=== PATIENT | female | born 1995 | race Caucasian/White ===

== ENCOUNTER 2020-12-29 14:00 | Emergency (ER) | payer OTHER, SELFPAY ==
[2020-12-29 14:05] VITALS: BP 137/82; PULSE 83; RESP 16; TEMP 36.5; O2SAT 99; BMI 24.7
--- NOTE | 2020-12-29 14:29 | ED.ALLEREA ---
HPI - Allergic Reaction <Bryant Guardado PA-C - Last Filed: 12/29/20 15:51> General Chief complaint: Allergic Reaction Stated complaint: rash all over body Time Seen by Provider: 12/29/20 14:29 Source: patient Mode of arrival: Ambulatory History of Present Illness HPI narrative: Delaney presents today with chief complaint of spreading rash that started today. She reports that she was previously being treated for cellulitis of her right proximal thigh and finished her antibiotics today. An hour before her symptoms started she was cleaning out a cooler that had rotten chicken in it for about 2 months. She thinks that maybe she got some of it on her which could have caused the reaction. She reports that the rash is slightly itchy and is not painful. She denies any throat tightness, shortness of breath, cough, joint pain or any other acute concerns or complaints at this time. She has no known allergies. Related Data Previous Rx's Medication Instructions Recorded famotidine 40 mg tablet 40 mg PO DAILY 7 Days #7 tab 12/29/20 fexofenadine 60 mg tablet 60 mg PO BID 7 Days #14 tab 12/29/20 prednisone 20 mg tablet 40 mg PO DAILY 5 Days #10 tab 12/29/20 Allergies Allergy/AdvReac Type Severity Reaction Status Date / Time sulfamethoxazole Allergy Verified 12/29/20 15:34 Review of Systems <Bryant Guardado PA-C - Last Filed: 12/29/20 15:51> Review of Systems Narrative: As per HPI Patient History <Bryant Guardado PA-C - Last Filed: 12/29/20 15:51> Social History Smoking Status: Never smoker Smoking Status: Never smoker alcohol intake frequency: 0-2 drinks per day Substance Use Type: does not use Exam <Bryant Guardado PA-C - Last Filed: 12/29/20 15:51> Narrative Exam Narrative: Exam Narrative: Const General: cooperative, healthy appearing, comfortable, no acute distress, well developed and well groomed Nutritional Appearance: average body habitus Orientation: alert and oriented x3 HENMT Head: normal to inspection and atraumatic Ears: hearing grossly normal bilaterally Nose: external nose normal and nares normal Face and sinus: normal facial exam Mouth: Oral mucosa grossly normal to appearance. No significant lesions, erythema or edema noted. Tongue normal. Uvula midline without edema or erythema. Neck Neck: normal visual inspection and supple Resp Effort & Inspection: normal respiratory effort, able to speak in complete sentences, no audible wheezes, not labored, no nasal flaring and no respiratory distress, clear to auscultation bilaterally Neuro General: alert, oriented x3, gait normal, tone normal and moves all extremities Cognition: normal cognition Speech: speech normal Gait: normal gait Skin Monumental Stonemason present: Camille KEEN. Diffuse irregular shaped raised areas of erythema across bilateral lower extremities, torso and upper extremities. Psych Appearance: grossly normal and well kempt Mental Status: mental status grossly normal Speech and Movement: speech and movement normal Mood: congruent mood Affect: normal affect Initial Vital Signs Initial Vital Signs: Vital Signs Temperature 97.7 F 12/29/20 14:05 Pulse Rate 83 12/29/20 14:05 Respiratory Rate 16 12/29/20 14:05 Blood Pressure 137/82 12/29/20 14:05 Pulse Oximetry 99 12/29/20 14:05 <Haresh Taylor MD - Last Filed: 12/29/20 16:08> Initial Vital Signs Initial Vital Signs: Vital Signs Temperature 97.7 F 12/29/20 14:05 Pulse Rate 83 12/29/20 14:05 Respiratory Rate 16 12/29/20 14:05 Blood Pressure 137/82 12/29/20 14:05 Pulse Oximetry 99 12/29/20 14:05 Course <Bryant Guardado PA-C - Last Filed: 12/29/20 15:51> Course Course Narrative: Differential diagnosis includes anaphylaxis, drug reaction, allergic dermatitis, contact dermatitis. Patient's symptoms started after she completed the full course of antibiotics. She has used sulfa antibiotics in the past without similar reactions. She does not have any oral involvement nor any evidence of airway compromise at this time. I think that allergic reaction to her antibiotics is certainly possible but seems unlikely given the onset of her symptoms. We will treat for allergic dermatitis at this time. She is currently finished her antibiotics so no need to discontinue those at this time. Return precautions were discussed with the patient. Patient verbalizes understanding and agrees to plan and has no further concerns at this time. Thank you A [id number] system was used with the dictation of this note. Please disregard any spelling or grammatical errors. Orders Ordered: Discontinued Medications Diphenhydramine HCl (Diphenhydramine 25 Mg Tablet) 50 mg PO NOW ONE Stop: 12/29/20 14:35 Last Admin: 12/29/20 14:39 Dose: 50 mg Documented by: TOOTIE Famotidine (Famotidine 20 Mg Tablet) 20 mg PO Q48H [facility] Last Admin: 12/29/20 14:40 Dose: 20 mg Documented by: TOOTIE Prednisone (Prednisone 20 Mg Tablet) 40 mg PO NOW ONE Stop: 12/29/20 15:20 Last Admin: 12/29/20 15:26 Dose: 40 mg Documented by: TOOTIE Vital Signs Vital signs: Vital Signs - 8 hr 12/29/20 14:05 12/29/20 15:35 Temperature 97.7 F Pulse Rate 83 80 Respiratory Rate 16 16 Blood Pressure 137/82 140/80 Pulse Oximetry 99 99 <Haresh Taylor MD - Last Filed: 12/29/20 16:08> Orders Ordered: Discontinued Medications Diphenhydramine HCl (Diphenhydramine 25 Mg Tablet) 50 mg PO NOW ONE Stop: 12/29/20 14:35 Last Admin: 12/29/20 14:39 Dose: 50 mg Documented by: TOOTIE Famotidine (Famotidine 20 Mg Tablet) 20 mg PO Q48H [facility] Last Admin: 12/29/20 14:40 Dose: 20 mg Documented by: TOOTIE Prednisone (Prednisone 20 Mg Tablet) 40 mg PO NOW ONE Stop: 12/29/20 15:20 Last Admin: 12/29/20 15:26 Dose: 40 mg Documented by: TOOTIE Vital Signs Vital signs: Vital Signs - 8 hr 12/29/20 14:05 12/29/20 15:35 Temperature 97.7 F Pulse Rate 83 80 Respiratory Rate 16 16 Blood Pressure 137/82 140/80 Pulse Oximetry 99 99 Discharge Plan Departure Patient Disposition: Home Clinical Impression: Urticaria Instructions: DI for Hives Activity Restrictions/Additional Instructions: It was very nice to meet you this afternoon. Please take the antihistamines and prednisone to help with your symptoms. I expect them to improve by tomorrow. You experience spreading redness, throat tightness, shortness of breath, cough or any other acute concerns or complaints do not hesitate to return for re-evaluation. Thank you Bryant Guardado PA-C Prescriptions: New famotidine 40 mg tablet 40 mg PO DAILY 7 Days Qty: 7 RF: 0 fexofenadine 60 mg tablet 60 mg PO BID 7 Days Qty: 14 RF: 0 prednisone 20 mg tablet 40 mg PO DAILY 5 Days Qty: 10 RF: 0
[2020-12-29] MEDS: diphenhydrAMINE 25 MG TABLET 50 MG PO (14:39)
[2020-12-29] MEDS: FAMOTIDINE 20 MG TABLET PO (14:40)
[2020-12-29] MEDS: predniSONE 20 MG TABLET 40 MG PO (15:26)
[2020-12-29 15:35] VITALS: BP 140/80; PULSE 80; RESP 16; O2SAT 99
== END 2020-12-29 15:35 | disposition home or self-care (01) ==
PROVIDERS: Emergency Provider Physician Assistant
DX: L50.9 Urticaria, unspecified (principal)
CPT/HCPCS: 99283; A9270